=== PATIENT | female | born 1990 | race Caucasian/White ===

== ENCOUNTER 2017-05-16 14:14 | Outpatient (CLI) | payer BC, OTHER ==
[~2017-05-16 14:14] MED LIST: CIPRO500 MG PO; HYDROCODON-ACE1 EAC9 PO; METFORMIN HCL750 MG PO; MOTRIN800 MG PO; NAPROSYN375 MG PO; PROZAC20 MG PO; SUPRAX400 M1 PO; ULTRACET1 TABLET PO; ULTRAM50 MG PO; VYVANSE40 MG PO; ZOFRAN ODT4 MG PO; bcp
[2017-05-16 14:43] VITALS: BP 128/75
[2017-05-16] MEDS ORDERED: PRENATAL TABLE1 EAC3 PO (14:44)
[2017-05-16 15:14] VITALS: BP 130/81
[2017-05-16 15:44] VITALS: BP 118/74
[2017-05-16 15:54] LABS: UR CREATININE CONCENTRATION 81.7 MG/DL
[2017-05-16 16:03] LABS: BASOPHIL (%) 0.5 % (0-1); BASOPHIL COUNT 0.1 K/uL (0-0.1); EOSINOPHIL (%) 0.7 % (0-5); EOSINOPHIL COUNT 0.1 K/uL (0-0.3); HEMATOCRIT 34.2 % (36.0-46.0); HEMOGLOBIN 11.3 G/DL (11.9-15.5); IMMATURE GRANULOCYTE (%) 3.4 % (0.0-0.7); LYMPHOCYTE (%) 14.9 % (15-42); LYMPHOCYTE COUNT 1.6 K/uL (1.0-2.8); MCH 32.8 PG (29.0-34.0); MCV 99.1 FL (83-99); MONOCYTE (%) 5.5 % (3-12); MONOCYTE COUNT 0.6 K/uL (0-0.8); NEUTROPHIL COUNT 7.9 K/uL (1.8-6.4); PLATELET COUNT 248 K/uL (156-360); RBC DIS.WIDTH-CV 13.4 % (11.8-14.6); RBC DIS.WIDTH-SD 48.1 % (39-53); RED BLOOD COUNT 3.45 M/uL (3.80-5.20); WHITE BLOOD COUNT 10.6 K/uL (4.1-10.2)
[2017-05-16 16:12] LABS: ALBUMIN 3.3 G/DL (3.2-4.8); CHLORIDE 109 MEQ/L (99-109); SODIUM 139 MEQ/L (136-147); TOTAL BILIRUBIN 0.3 MG/DL (0.0-1.0)
[2017-05-16 16:14] VITALS: BP 110/71
[2017-05-16 16:18] LABS: ALKALINE PHOSPHATASE 89 IU/L (3-129); ALT (GPT) 9 IU/L (3-49); AST (GOT) 11 IU/L (2-34); CREATININE 0.4 MG/DL (0.6-1.3); GFR ESTIMATE (CALCULATED) > 59 mL/min/; GLUCOSE 88 mg/dL (70-99); TOTAL PROTEIN 6.3 G/DL (6.4-8.3); UREA NITROGEN (BUN) 9 mg/dL (9-23)
== END 2017-05-16 16:50 | disposition home or self-care (01) ==
LOC: LDRP-OP 14:14 → 2WEST 14:15 → LDRP-OP 07-19 10:35
PROVIDERS: Midwife
DX: O12.03 Gestational edema, third trimester (principal); O26.893 Other specified pregnancy related conditions, third trimester; R51 Headache; R10.11 Right upper quadrant pain; Z3A.35 35 weeks gestation of pregnancy
CPT/HCPCS: 59025; 80053; 82570; 84156; 85025; G0378

== ENCOUNTER 2017-05-18 11:44 | Outpatient (CLI) | payer BC, OTHER ==
[2017-05-18] VITALS (9 sets, daily range): BP systolic 93–121; BP diastolic 51–79
[~2017-05-18] VITALS: Ht 157.5 cm; Wt 81.0 kg
[~2017-05-18 11:44] MED LIST changes: +PRENATAL TABLE1 EAC3 PO
[2017-05-18] MEDS ORDERED: PEPCID20 MG PO (12:04)
[2017-05-18 12:43] LABS: BASOPHIL (%) 0.4 % (0-1); BASOPHIL COUNT 0.1 K/uL (0-0.1); EOSINOPHIL (%) 0.6 % (0-5); EOSINOPHIL COUNT 0.1 K/uL (0-0.3); HEMATOCRIT 32.6 % (36.0-46.0); HEMOGLOBIN 10.9 G/DL (11.9-15.5); IMMATURE GRANULOCYTE (%) 2.6 % (0.0-0.7); LYMPHOCYTE (%) 14.6 % (15-42); MCH 32.3 PG (29.0-34.0); MCHC 33.4 G/DL (30.0-36.0); MCV 96.7 FL (83-99); MONOCYTE (%) 5.2 % (3-12); MONOCYTE COUNT 0.7 K/uL (0-0.8); NEUTROPHIL (%) 76.6 % (45-76); NEUTROPHIL COUNT 10.7 K/uL (1.8-6.4); PLATELET COUNT 295 K/uL (156-360); RBC DIS.WIDTH-CV 13.2 % (11.8-14.6); RBC DIS.WIDTH-SD 46.5 % (39-53); RED BLOOD COUNT 3.37 M/uL (3.80-5.20); WHITE BLOOD COUNT 13.9 K/uL (4.1-10.2)
[2017-05-18 12:51] LABS: ALBUMIN 3.4 g/dL (3.2-4.8); CHLORIDE 108 mEq/L (99-109); POTASSIUM 3.9 mEq/L (3.7-5.4); SODIUM 137 mEq/L (136-147)
[2017-05-18 12:53] LABS: GLUCOSE 81 mg/dL (70-99)
[2017-05-18 12:55] LABS: TOTAL BILIRUBIN 0.3 mg/dL (0.0-1.0)
[2017-05-18 12:57] LABS: ALKALINE PHOSPHATASE 105 IU/L (3-129); CREATININE 0.5 mg/dL (0.6-1.3); GFR ESTIMATE (CALCULATED) > 59 mL/min/
[2017-05-18 12:58] LABS: UREA NITROGEN (BUN) 7 mg/dL (9-23)
[2017-05-18 12:59] LABS: AST (GOT) 15 IU/L (2-34)
[2017-05-18 13:00] LABS: ALT (GPT) 14 IU/L (3-49); URIC ACID 3.9 mg/dL (3.1-9.2)
[2017-05-18 14:27] LABS: UR CREATININE CONCENTRATION 65.8 MG/DL
[2017-05-19] MEDS ORDERED: FIORICET 50-301 EAC1 PO (19:27)
== END 2017-05-18 14:54 | disposition home or self-care (01) ==
LOC: LDRP-OP 11:44 → 2WEST 11:46 → LDRP-OP 07-19 18:01
PROVIDERS: Nurse Practitioner
DX: O26.893 Other specified pregnancy related conditions, third trimester (principal); R51 Headache; R11.0 Nausea; R10.13 Epigastric pain; L29.9 Pruritus, unspecified; O99.283 Endocrine, nutritional and metabolic diseases complicating pregnancy, third trimester; E28.2 Polycystic ovarian syndrome; O99.343 Other mental disorders complicating pregnancy, third trimester; F90.9 Attention-deficit hyperactivity disorder, unspecified type; Z3A.35 35 weeks gestation of pregnancy; Z62.810 Personal history of physical and sexual abuse in childhood
CPT/HCPCS: 59025; 80053; 82570; 84156; 84550; 85025; G0378

== ENCOUNTER 2017-05-19 18:56 | Outpatient (CLI) | payer BC, OTHER ==
[~2017-05-19 18:56] MED LIST changes: +PEPCID20 MG PO
[2017-05-19 19:17] VITALS: BP 138/74
[2017-05-19] MEDS ORDERED: FIORICET 50-301 EAC1 PO (19:27)
[2017-05-19 19:32] LABS: BASOPHIL (%) 0.4 % (0-1); EOSINOPHIL (%) 0.9 % (0-5); EOSINOPHIL COUNT 0.1 K/uL (0-0.3); HEMATOCRIT 34.9 % (36.0-46.0); HEMOGLOBIN 11.5 G/DL (11.9-15.5); IMMATURE GRANULOCYTE (%) 4.7 % (0.0-0.7); LYMPHOCYTE (%) 16.5 % (15-42); LYMPHOCYTE COUNT 1.8 K/uL (1.0-2.8); MCH 31.8 PG (29.0-34.0); MCV 96.4 FL (83-99); MONOCYTE (%) 6.2 % (3-12); MONOCYTE COUNT 0.7 K/uL (0-0.8); NEUTROPHIL (%) 71.3 % (45-76); NEUTROPHIL COUNT 7.7 K/uL (1.8-6.4); PLATELET COUNT 325 K/uL (156-360); RBC DIS.WIDTH-CV 13.2 % (11.8-14.6); RED BLOOD COUNT 3.62 M/uL (3.80-5.20); WHITE BLOOD COUNT 10.8 K/uL (4.1-10.2)
[2017-05-19 19:57] LABS: ALBUMIN 3.4 G/DL (3.2-4.8); ALKALINE PHOSPHATASE 92 IU/L (3-129); ALT (GPT) 10 IU/L (3-49); AST (GOT) 12 IU/L (2-34); CHLORIDE 104 MEQ/L (99-109); CREATININE 0.4 MG/DL (0.6-1.3); GFR ESTIMATE (CALCULATED) > 59 mL/min/; GLUCOSE 87 mg/dL (70-99); POTASSIUM 4.1 MEQ/L (3.7-5.4); SODIUM 133 MEQ/L (136-147); TOTAL BILIRUBIN 0.3 MG/DL (0.0-1.0); TOTAL PROTEIN 6.4 G/DL (6.4-8.3); UREA NITROGEN (BUN) 9 mg/dL (9-23)
[2017-05-19 20:02] VITALS: BP 128/77
[2017-05-19 20:34] LABS: UR CREATININE CONCENTRATION 143.8 MG/DL
[2017-05-19 20:38] VITALS: BP 119/73
== END 2017-05-19 21:00 | disposition home or self-care (01) ==
LOC: LDRP-OP 18:56 → 2WEST 18:58 → LDRP-OP 07-19 15:24
PROVIDERS: Nurse Practitioner
DX: O13.3 Gestational [pregnancy-induced] hypertension without significant proteinuria, third trimester (principal); Z3A.35 35 weeks gestation of pregnancy; O98.513 Other viral diseases complicating pregnancy, third trimester; B00.9 Herpesviral infection, unspecified
CPT/HCPCS: 59025; 80053; 82570; 84156; 85025; G0378

== ENCOUNTER 2017-05-29 17:15 | Inpatient (IN) | payer BC, OTHER ==
[~2017-05-29] VITALS: Ht 157.5 cm; Wt 82.0 kg
[~2017-05-29 17:15] MED LIST changes: +FIORICET 50-301 EAC1 PO
[2017-05-29 18:00] LABS: HEMATOCRIT 33.4 % (36.0-46.0); MCH 32.4 PG (29.0-34.0); MCHC 32.9 G/DL (30.0-36.0); MCV 98.2 FL (83-99); PLATELET COUNT 273 K/uL (156-360); RBC DIS.WIDTH-CV 13.9 % (11.8-14.6); RBC DIS.WIDTH-SD 49.1 % (39-53)
[2017-05-29 18:27] LABS: ALBUMIN 3.4 G/DL (3.2-4.8); ALKALINE PHOSPHATASE 95 IU/L (3-129); ALT (GPT) 14 IU/L (3-49); AST (GOT) 14 IU/L (2-34); CHLORIDE 104 MEQ/L (99-109); CREATININE 0.4 MG/DL (0.6-1.3); GFR ESTIMATE (CALCULATED) > 59 mL/min/; GLUCOSE 113 mg/dL (70-99); POTASSIUM 4.2 MEQ/L (3.7-5.4); SODIUM 134 MEQ/L (136-147); TOTAL PROTEIN 5.8 G/DL (6.4-8.3); UREA NITROGEN (BUN) 10 mg/dL (9-23)
[2017-05-29] MEDS ORDERED: VALACYCLOVIR500 MG PO (18:28)
[2017-05-29 18:30] LABS: TOTAL BILIRUBIN 0.2 MG/DL (0.0-1.0)
[2017-05-29 18:48] LABS: ABS NEUTROPHIL COUNT 9.4; ANISOCYTOSIS 1+; ATYPICAL LYMPHOCYTE 3.5 %; BAND NEUTROPHILS 1.7 % (0-8.0); EOSINOPHIL ABS CT 0; LYMPHOCYTES 10.5 % (15.0-45.0); METAMYELOCYTES 0.9 %; MONOCYTES 5.3 % (0-9.0); MYELOCYTES 1.8 %; PLAT.SUFFICIENCY ADEQUATE; PLATELET CLUMPS PRESENT - PLATELET COUNT APPEARS ADQ.; SEG.NEUTROPHILS 76.3 % (46.0-76.0)
[2017-05-29 18:55] LABS: AMPHETAMINE NEGATIVE (500 ng/mL); BARBITURATES NEGATIVE (200 ng/mL); BENZODIAZEPINES NEGATIVE (150 ng/mL); BUPRENORPHINE NEGATIVE (10 ng/mL); COCAINE NEGATIVE (150 ng/mL); METHADONE NEGATIVE (200 ng/mL); METHAMPHETAMINE NEGATIVE (500 ng/mL); OPIATES (MORPHINE) NEGATIVE (100 ng/mL); OXYCODONE NEGATIVE (100 ng/mL); PHENCYCLIDINE NEGATIVE (25 ng/mL); PROPOXYPHENE NEGATIVE (300 ng/mL); THC CANNABINOIDS NEGATIVE (50 ng/mL); TRICYCLIC ANTIDEPRESSANTS NEGATIVE (300 ng/mL)
[2017-05-29 18:58] VITALS: BP 128/78
[2017-05-29 19:02] LABS: UR CREATININE CONCENTRATION 69.3 MG/DL
[2017-05-29 20:05] VITALS: BP 126/76
[2017-05-29 21:14] VITALS: BP 125/80
[2017-05-29 21:50] VITALS: BP 110/63
[2017-05-29 23:09] VITALS: BP 117/63
[2017-05-30] VITALS (30 sets, daily range): BP systolic 90–141; BP diastolic 49–86
[2017-05-31] VITALS (9 sets, daily range): BP systolic 106–126; BP diastolic 63–74
[2017-05-31] MEDS ORDERED: IBUPROFEN800 MG PO (01:09)
[2017-05-31] MEDS ORDERED: ENDOCET 5-3251 EACH PO (01:09)
[2017-05-31 06:43] LABS: BASOPHIL (%) 0.2 % (0-1); EOSINOPHIL (%) 0 % (0-5); HEMATOCRIT 29.7 % (36.0-46.0); HEMOGLOBIN 9.6 G/DL (11.9-15.5); IMMATURE GRANULOCYTE (%) 1.3 % (0.0-0.7); LYMPHOCYTE (%) 10.5 % (15-42); LYMPHOCYTE COUNT 1.7 K/uL (1.0-2.8); MCH 31.7 PG (29.0-34.0); MCHC 32.3 G/DL (30.0-36.0); MONOCYTE (%) 4.6 % (3-12); MONOCYTE COUNT 0.7 K/uL (0-0.8); NEUTROPHIL (%) 83.4 % (45-76); NEUTROPHIL COUNT 13.1 K/uL (1.8-6.4); PLATELET COUNT 274 K/uL (156-360); RBC DIS.WIDTH-CV 14.1 % (11.8-14.6); RBC DIS.WIDTH-SD 49.3 % (39-53); RED BLOOD COUNT 3.03 M/uL (3.80-5.20); WHITE BLOOD COUNT 15.7 K/uL (4.1-10.2)
[2017-06-01 07:38] VITALS: BP 115/77
[2017-06-01 15:19] VITALS: BP 109/66
[2017-06-01 16:09] VITALS: BP 130/77
[2017-06-01 19:08] VITALS: BP 110/65
[2017-06-01 22:46] VITALS: BP 121/71
[2017-06-02 03:03] VITALS: BP 106/56
[2017-06-02 11:28] VITALS: BP 123/76
[2017-06-02 19:41] VITALS: BP 125/74
[2017-06-03 03:40] VITALS: BP 107/56
== END 2017-06-03 13:20 | disposition home or self-care (01) | DRG 765 ==
LOC: LDRP-OP 17:15 → 2WEST 17:16 → LDRP-OP 07-19 22:10
PROVIDERS: Midwife; Obstetrics & Gynecology
PROC: 3E0P7GC Introduction of Other Therapeutic Substance into Female Reproductive, Via Natural or Artificial Opening (ICD-10-PCS; 2017-05-29)
PROC: 3E033VJ Introduction of Other Hormone into Peripheral Vein, Percutaneous Approach (ICD-10-PCS; 2017-05-29)
PROC: 10907ZC Drainage of Amniotic Fluid, Therapeutic from Products of Conception, Via Natural or Artificial Opening (ICD-10-PCS; 2017-05-30)
PROC: 00HU33Z Insertion of Infusion Device into Spinal Canal, Percutaneous Approach (ICD-10-PCS; 2017-05-30)
PROC: 3E0R3BZ Introduction of Anesthetic Agent into Spinal Canal, Percutaneous Approach (ICD-10-PCS; 2017-05-30)
PROC: 10D00Z1 Extraction of Products of Conception, Low, Open Approach (ICD-10-PCS; principal; 2017-05-31)
DX: O65.4 Obstructed labor due to fetopelvic disproportion, unspecified (principal); O13.4 Gestational [pregnancy-induced] hypertension without significant proteinuria, complicating childbirth; O69.81X0 Labor and delivery complicated by cord around neck, without compression, not applicable or unspecified; O99.02 Anemia complicating childbirth; D50.9 Iron deficiency anemia, unspecified; O98.52 Other viral diseases complicating childbirth; B00.9 Herpesviral infection, unspecified; Z3A.37 37 weeks gestation of pregnancy; Z37.0 Single live birth
CPT/HCPCS: 80053; 80306 90; 82570; 84156; 85025; 86850; 86900; 86901; C1755; G0378; J0456; J0690; J1170; J2270; J3010; J7120